=== PATIENT | male | born 1980 | race African-American/Black ===

== ENCOUNTER 2017-07-11 20:18 | Emergency (ER) | payer OTHER ==
[~2017-07-11] VITALS: Ht 188 cm; Wt 136.0 kg
[2017-07-11] MEDS ORDERED: CLONIDINE 0.2MG TABLET PO ONE (20:45)
[2017-07-11 21:05] LABS: BASOPHILS % 0.2 % (0.0-2.0); HEMATOCRIT. 49.5 % (42.0-52.0); HEMOGLOBIN. 16.7 g/dL (14.0-18.0); LYMPHOCYTES % 33.1 % (20.0-50.0); MEAN CORPUSCULAR HEMOGLOBIN 29.1 pg (28.0-32.0); MEAN CORPUSCULAR VOLUME 86.1 fL (80.0-94.0); MEAN PLATELET VOLUME 10.8 fl (7.4-10.4); NEUTROPHILS % 57.7 % (40.0-76.0); PLATELET 240 x1000/uL (130-400); RED BLOOD CELL COUNT 5.74 mill/uL (4.7-6.1)
[2017-07-11 21:09] LABS: CHLORIDE 102 mEq/L (98-107)
[2017-07-11 21:10] LABS: INR 1.1; PROTHROMBIN TIME 11.8 sec (9.4-11.6)
[2017-07-11 21:14] LABS: ETHANOL BLOOD < 10 mg/dL
[2017-07-11 21:18] LABS: CREATINE KINASE 334 IU/L (39-308)
[2017-07-11] MEDS ORDERED: POTASSIUM CHLORIDE 20MEQ TABLET SR PO ONE (21:45)
[2017-07-11 21:55] LABS: CLARITY URINE CLOUDY (CLEAR); COLOR URINE YELLOW (YELLOW); KETONES URINE TRACE (NEGATIVE); LEUKOCYTE ESTERASE URINE NEGATIVE (NEGATIVE); NITRITE URINE NEGATIVE (NEGATIVE); OCCULT BLOOD URINE NEGATIVE (NEGATIVE); PH URINE 5.5 (4.5-8.0); PROTEIN URINE TRACE (NEGATIVE); SPECIFIC GRAVITY URINE 1.027 (1.005-1.030)
[2017-07-11 22:15] LABS: *AMPHETAMINES SCREEN URINE NEGATIVE (NEGATIVE); *BARBITURATES SCREEN URINE NEGATIVE (NEGATIVE); CANNABINOID URINE SCREEN NEGATIVE (NEGATIVE); PHENCYCLIDINE URINE SCREEN NEGATIVE (NEGATIVE)
[2017-07-11 22:16] LABS: *BENZODIAZEPINES SCREEN URINE NEGATIVE (NEGATIVE); *COCAINE SCREEN URINE NEGATIVE (NEGATIVE); METHADONE URINE SCREEN NEGATIVE (NEGATIVE); OPIATES URINE SCREEN NEGATIVE (NEGATIVE)
[2017-07-11 23:56] VITALS: BP 140/85
== END 2017-07-11 23:58 | disposition home or self-care (01) ==
LOC: ER 20:53
DX: I10 Essential (primary) hypertension (principal); I71.4 Abdominal aortic aneurysm, without rupture; R53.1 Weakness; R51 Headache; E86.0 Dehydration; E87.6 Hypokalemia
CPT/HCPCS: 36415; 70450; 71045; 80053; 80305; 81003; 82550; 83880; 84443; 84484; 85025; 85610; 93005; 99285; G0482

== ENCOUNTER 2019-07-11 22:27 | Inpatient (IN) | payer OTHER ==
[~2019-07-11] VITALS: Ht 188 cm; Wt 63.5 kg
[2019-07-11] MEDS ORDERED: ACETAMINOPHEN 500MG TABLET PO ONE (23:15)
[2019-07-11 23:44] LABS: BASOPHILS % 0.2 % (0.0-2.0); EOSINOPHILS % 0.7 % (0.0-5.0); HEMATOCRIT. 47.6 % (42.0-52.0); HEMOGLOBIN. 15.9 g/dL (14.0-18.0); LYMPHOCYTES % 33.9 % (20.0-50.0); MEAN CORPUSCULAR HEMOGLOBIN 29.1 pg (28.0-32.0); MEAN CORPUSCULAR VOLUME 87.3 fL (80.0-94.0); MEAN PLATELET VOLUME 10.5 fl (7.4-10.4); MONOCYTES % 12.8 % (2.0-8.0); NEUTROPHILS % 52.4 % (40.0-76.0); PLATELET 142 x1000/uL (130-400); RED BLOOD CELL COUNT 5.46 mill/uL (4.7-6.1); RED CELL DISTRIBUTION WIDTH 14.4 % (11.6-14.6)
[2019-07-11 23:53] LABS: CHLORIDE 98 mEq/L (98-107)
[2019-07-12 00:13] LABS: D-DIMER 0.46 mg/L FEU (<0.50); INR 1.1; PROTHROMBIN TIME 11.5 sec (9.6-11.0)
[2019-07-12] MEDS ORDERED: POTASSIUM CHLORIDE 20MEQ TABLET SR PO ONE ×2 (00:15→05:47)
[2019-07-12] MEDS ORDERED: ACETAMINOPHEN 500MG TABLET PO ONE (05:47)
[2019-07-12] MEDS ORDERED: DOCUSATE SODIUM 100MG CAPSULE PO PRN (06:30)
[2019-07-12] MEDS ORDERED: HYDROCODONE/ACETAMINOPHEN 5/325MG TABLET PO PRN (06:30)
[2019-07-12] MEDS ORDERED: MAGNESIUM/ALUMINUM HYDROXIDE/SIMETHICONE 30ML UDC PO PRN (06:30)
[2019-07-12] MEDS ORDERED: ONDANSETRON HCL 4MG/2ML INJ IV PRN (06:30)
[2019-07-12] MEDS ORDERED: MORPHINE SULFATE 2 MG/ML CPJ (NOT FOR IM USE) IV PRN (06:30)
[2019-07-12] MEDS ORDERED: AMLODIPINE 10MG TABLET PO SCH (09:00)
[2019-07-12 09:53] LABS: CREATINE KINASE 424 IU/L (39-308)
[2019-07-12] MEDS: ASPIRIN 81MG EC TABLET PO SCH (11:00)
[2019-07-12] MEDS: ENOXAPARIN 40MG/0.4ML SYR SUBCUT SCH (11:00)
[2019-07-12 11:29] LABS: HEMATOCRIT. 45.9 % (42.0-52.0); HEMOGLOBIN. 15.4 g/dL (14.0-18.0); MEAN CORPUSCULAR HEMOGLOBIN 29.3 pg (28.0-32.0); MEAN CORPUSCULAR VOLUME 87.4 fL (80.0-94.0); MEAN PLATELET VOLUME 11.4 fl (7.4-10.4); PLATELET 132 x1000/uL (130-400); RED BLOOD CELL COUNT 5.26 mill/uL (4.7-6.1); RED CELL DISTRIBUTION WIDTH 14.4 % (11.6-14.6)
[2019-07-12 11:32] LABS: CHLORIDE 99 mEq/L (98-107)
[2019-07-12 12:04] LABS: PLATELET ESTIMATE NORMAL
[2019-07-12] MEDS ORDERED: HYDROCHLOROTHIAZIDE 12.5MG CAPSULE PO SCH (12:30)
[2019-07-12] MEDS ORDERED: POTASSIUM CHLORIDE INJ 40 MEQ in DEXT 5% WATER 250 ML IV ONE (12:30)
[2019-07-12] MEDS ORDERED: POTASSIUM CHLORIDE 20MEQ TABLET SR PO NR (16:00)
[2019-07-12] MEDS: CLONIDINE 0.1MG TABLET PO PRN (17:47)
[2019-07-12 18:54] VITALS: BP 169/109
[2019-07-12] MEDS ORDERED: ACETAMINOPHEN 500MG TABLET PO PRN (19:15)
[2019-07-12] MEDS ORDERED: ATEN50TA PO (19:32)
[2019-07-12] MEDS ORDERED: AMLO5TAB88 PO (19:32)
[2019-07-12] MEDS ORDERED: LISI-604 PO (19:32)
[2019-07-12] MEDS ORDERED: HYDR25TA PO (19:32)
[2019-07-12 20:00] VITALS: BP_SYST 142; BP_SYST 169; BP_DIAS 107; BP_DIAS 95
[2019-07-12] MEDS ORDERED: LABETALOL 5MG/ML SYR 20 MG/4 ML SYRINGE IV NR (20:00)
[2019-07-12] MEDS: ACETAMINOPHEN 325MG TABLET PO PRN (20:07)
[2019-07-12 21:30] VITALS: BP 151/97
[2019-07-12] MEDS: ATENOLOL 50 MG TABLET PO SCH (21:30)
[2019-07-12] MEDS: LISINOPRIL 20MG TABLET PO SCH (21:31)
[2019-07-12] MEDS: HYDRALAZINE HCL 50MG TABLET PO SCH (21:31)
[2019-07-12] MEDS: AMLODIPINE 5MG TABLET PO SCH (21:31)
[2019-07-13] VITALS: BP 123/75
[2019-07-13 00:39] LABS: CREATINE KINASE 348 IU/L (39-308)
[2019-07-13 04:00] VITALS: BP 127/79
[2019-07-13 08:00] VITALS: BP 156/92
[2019-07-13 08:24] LABS: BASOPHILS % 0.8 % (0.0-2.0); EOSINOPHILS % 0.3 % (0.0-5.0); HEMATOCRIT. 44.6 % (42.0-52.0); HEMOGLOBIN. 14.9 g/dL (14.0-18.0); LYMPHOCYTES % 50.4 % (20.0-50.0); MEAN CORPUSCULAR HEMOGLOBIN 29.4 pg (28.0-32.0); MEAN CORPUSCULAR VOLUME 87.6 fL (80.0-94.0); MEAN PLATELET VOLUME 10.9 fl (7.4-10.4); MONOCYTES % 10.2 % (2.0-8.0); NEUTROPHILS % 38.3 % (40.0-76.0); PLATELET 113 x1000/uL (130-400); RED BLOOD CELL COUNT 5.08 mill/uL (4.7-6.1); RED CELL DISTRIBUTION WIDTH 14.4 % (11.6-14.6)
[2019-07-13 08:27] LABS: CHLORIDE 99 mEq/L (98-107)
[2019-07-13] MEDS: ASPIRIN 81MG EC TABLET PO SCH (08:53)
[2019-07-13] MEDS: AMLODIPINE 5MG TABLET PO SCH ×2 (08:54→20:09)
[2019-07-13] MEDS: HYDRALAZINE HCL 50MG TABLET PO SCH ×2 (08:54→20:08)
[2019-07-13] MEDS: ATENOLOL 50 MG TABLET PO SCH ×2 (08:54→20:09)
[2019-07-13] MEDS: LISINOPRIL 20MG TABLET PO SCH (08:55)
[2019-07-13] MEDS: HYDROCHLOROTHIAZIDE 25MG TABLET PO SCH (08:55)
[2019-07-13] MEDS: ACETAMINOPHEN 325MG TABLET PO PRN ×2 (09:53→17:53)
[2019-07-13] MEDS: ENOXAPARIN 40MG/0.4ML SYR SUBCUT SCH (09:54)
[2019-07-13 12:00] VITALS: BP 119/86
[2019-07-13] MEDS: ALBUTEROL 6.7GM HFA INHALER ORI SCH ×2 (14:00→20:08)
[2019-07-13] MEDS: AZITHROMYCIN 250 MG TABLET PO SCH (14:31)
[2019-07-13 15:52] VITALS: BP 138/88
[2019-07-13 20:00] VITALS: BP 174/101
[2019-07-13] MEDS: ENOXAPARIN 30MG/0.3ML SYR SUBCUT SCH (20:09)
[2019-07-14] VITALS: BP 172/109
[2019-07-14] MEDS: ACETAMINOPHEN 325MG TABLET PO PRN ×5 (00:17→21:01)
[2019-07-14] MEDS: CLONIDINE 0.1MG TABLET PO PRN ×2 (00:17→05:23)
[2019-07-14] MEDS: ALBUTEROL 6.7GM HFA INHALER ORI SCH ×4 (02:00→20:00)
[2019-07-14 04:00] VITALS: BP 161/99
[2019-07-14 08:00] VITALS: BP 138/85
[2019-07-14] MEDS: HYDRALAZINE HCL 50MG TABLET PO SCH ×2 (08:50→21:02)
[2019-07-14] MEDS: AZITHROMYCIN 250 MG TABLET PO SCH (08:50)
[2019-07-14] MEDS: LISINOPRIL 20MG TABLET PO SCH (08:51)
[2019-07-14] MEDS: ASPIRIN 81MG EC TABLET PO SCH (08:51)
[2019-07-14] MEDS: HYDROCHLOROTHIAZIDE 25MG TABLET PO SCH (08:51)
[2019-07-14] MEDS: AMLODIPINE 5MG TABLET PO SCH ×2 (08:51→21:02)
[2019-07-14] MEDS: ATENOLOL 50 MG TABLET PO SCH ×2 (08:51→21:01)
[2019-07-14] MEDS: ENOXAPARIN 30MG/0.3ML SYR SUBCUT SCH ×2 (08:55→21:02)
[2019-07-14 12:00] VITALS: BP 129/78
[2019-07-14 20:00] VITALS: BP 134/97
[2019-07-15 00:14] VITALS: BP 126/83
[2019-07-15] MEDS: ALBUTEROL 6.7GM HFA INHALER ORI SCH ×2 (02:00→07:48)
[2019-07-15 04:00] VITALS: BP 128/91
[2019-07-15] MEDS: ACETAMINOPHEN 325MG TABLET PO PRN (05:18)
[2019-07-15 08:00] VITALS: BP 144/81
[2019-07-15] MEDS: HYDROCHLOROTHIAZIDE 25MG TABLET PO SCH (09:31)
[2019-07-15] MEDS: ATENOLOL 50 MG TABLET PO SCH (09:31)
[2019-07-15] MEDS: HYDRALAZINE HCL 50MG TABLET PO SCH (09:31)
[2019-07-15] MEDS: AZITHROMYCIN 250 MG TABLET PO SCH (09:31)
[2019-07-15] MEDS: ASPIRIN 81MG EC TABLET PO SCH (09:31)
[2019-07-15] MEDS: LISINOPRIL 20MG TABLET PO SCH (09:33)
[2019-07-15] MEDS: AMLODIPINE 5MG TABLET PO SCH (09:33)
[2019-07-15] MEDS: ENOXAPARIN 30MG/0.3ML SYR SUBCUT SCH (09:51)
[2019-07-15 09:52] VITALS: BP 144/81
== END 2019-07-15 11:30 | disposition home or self-care (01) | DRG 871 ==
LOC: ER 22:27 → 7EST 07-12 00:07 → ENRESERV 07-12 15:34
PROVIDERS: ADMIT Hospitalist; ATTEND Hospitalist
DX: A41.89 Other specified sepsis (principal); U07.1 COVID-19; J96.01 Acute respiratory failure with hypoxia; Z68.1 Body mass index [BMI] 19.9 or less, adult; E87.6 Hypokalemia; E66.9 Obesity, unspecified; I10 Essential (primary) hypertension; J20.8 Acute bronchitis due to other specified organisms; R07.89 Other chest pain
CPT/HCPCS: 36415; 71045; 80048; 80053; 82550; 82728; 83605; 83615; 83735; 83880; 84484; 85025; 85379; 93005; 99291; J1650; J3480; J3490; J7060; U0003